=== PATIENT | male | born 1965 | race African-American/Black ===

== ENCOUNTER 2017-12-25 20:58 | Emergency (ER) | payer OTHER ==
[~2017-12-25] VITALS: Ht 172.7 cm; Wt 65.8 kg
[2017-12-25 21:10] VITALS: BP 128/79
[2017-12-25] MEDS ORDERED: Tetanus/Diptheria/Pertussis Vaccine 0.5ml Syr IM ONE (21:30)
[2017-12-25 23:05] VITALS: BP 103/66
[2017-12-26 01:02] VITALS: BP 110/68
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
[2017-12-26 03:10] VITALS: BP 115/67
[2017-12-26 05:00] VITALS: BP 127/71
[2017-12-26 05:15] VITALS: BP 127/71
--- NOTE | 2017-12-26 12:41 | Diagnostic Imaging Report ---
Indication: Status post fall, pain Technique: Continuous helical CT scanning of the head was performed utilizing automated exposure control without intravenous contrast material. Axial and coronal reconstructions were obtained. Comparison: None CT dose: Total DLP 1471.09 mGycm; CTDI vol 70.38 mGy Findings: There is no acute intracranial hemorrhage, mass effect or cortical edema. The ventricles, cisterns and sulci are normal for age. There is supraorbital soft tissue swelling/hematoma, left greater than right. There is no depressed calvarial fracture. Mastoid air cells and paranasal sinuses are clear. IMPRESSION: No evidence of acute intracranial hemorrhage, mass effect or cortical edema. Extracranial soft tissue injury. No skull fracture. This corresponds with the statrad preliminary report. The CT scanner at [facility] is accredited by the [employer] [place] [employer] [employer] and the scans are performed using protocols designed to limit radiation exposure to as low as reasonably achievable to attain images of sufficient resolution adequate for diagnostic evaluation. .
== END 2017-12-26 05:15 | disposition home or self-care (01) ==
LOC: EDBD 20:58 → EMR 12-26 02:09
DX: S01.81XA Laceration without foreign body of other part of head, initial encounter (principal); S05.12XA Contusion of eyeball and orbital tissues, left eye, initial encounter; S09.90XA Unspecified injury of head, initial encounter; S05.11XA Contusion of eyeball and orbital tissues, right eye, initial encounter; F10.920 Alcohol use, unspecified with intoxication, uncomplicated; Z23 Encounter for immunization; V18.0XXA Pedal cycle driver injured in noncollision transport accident in nontraffic accident, initial encounter; Y92.410 Unspecified street and highway as the place of occurrence of the external cause
CPT/HCPCS: 12011; 70450; 90471; 90715; 99284; Z7502